=== PATIENT | female | born 1980 | race African-American/Black ===

== ENCOUNTER 2018-06-14 14:05 | Emergency (ER) | payer OTHER ==
[~2018-06-14] VITALS: Ht 167.6 cm; Wt 142.9 kg
[~2018-06-14 14:05] MED LIST: IBUPROFEN 800800 M1 PO; NOHOMEMEDICATIONS; NORCO 5-325 TA1 EACH PO; NORCO 7.5-3251 EACH PO
[2018-06-14 14:51] LABS: ABSOLUTE NEUTROPHILS 5.3 thou/uL (1.4-8.2); BASOPHILS 0.5 % (0.0-2.0); EOSINOPHILS 3.1 % (0.0-3.0); HEMATOCRIT 31.7 % (37.0-47.0); HEMOGLOBIN 10.7 gm/dL (12.0-15.0); MCH 29.6 pg (26.0-34.0); MCHC 33.8 g/dL (28.0-37.0); MCV 87.3 fL (80.0-100.0); MONOCYTES 6.5 % (1.0-8.0); PLATELET COUNT 270 thou/uL (150-400); POLYS 66.9 % (36.0-66.0); RBC 3.63 mil/uL (4.20-5.00); RDW 15.8 % (10.5-14.5)
[2018-06-14 14:59] LABS: ANION GAP 7 mmol/L (7-16); BUN 8 mg/dL (7-18); CALCIUM 8.9 mg/dL (8.5-10.1); CHLORIDE 105 mmol/L (98-107); CO2 26 mmol/L (21-32); CREATININE 0.8 mg/dL (0.6-1.0); GLUCOSE 94 mg/dL (74-106); POTASSIUM 4.1 mmol/L (3.5-5.1); SODIUM 138 mmol/L (136-145)
[2018-06-14 15:07] LABS: ALBUMIN 3.1 g/dL (3.4-5.0); SGOT 16 U/L (15-37); SGPT 11 U/L (30-65); TOTAL BILIRUBIN 0.3 mg/dL (<0.1-1.0); TOTAL PROTEIN 7.3 g/dL (6.4-8.2); TROPONIN-I <0.06 ng/mL (<0.06)
[2018-06-14 16:43] VITALS: BP 109/76
--- NOTE | 2018-06-14 22:09 | EKG ---
[place] [address] [employer] [place] [address] ELECTROCARDIOGRAM REPORT Name: CECE HECK Room #: DEP [facility]#: [id number] Admission: 06/14/18 Attend Phys: Discharge: 06/14/18 Date of : 76 Report #: [id number] THIS REPORT FOR: //name// [facility] ED Test Date: 2018-06-14 Test Time: 15:44:21 Pat Name: CECE HECK Department: Room: Gender: F Steel Inspector: [place] : 1980 Requested By: Benjamin Valdovinos Order Number: [id number] MD: Heath Brennan Measurements Intervals [place] Rate: 55 P: 27 UT: 167 QRS: 12 QRSD: 88 T: 9 QT: 473 QTc: 453 Interpretive Statements Sinus rhythm Low voltage, precordial leads Compared to ECG 01/18/2008 10:08:12 No significant changes noted Electronically Signed On 06-14-2018 22:09:39 CLIENT SUPPORT PROFESSIONAL by Heath Brennan [email or web address] <ELECTRONICALLY SIGNED> By: Heath Brennan MD 06/14/18 [id number] [id number] Heath Brennan MD /EPI
== END 2018-06-14 16:43 | disposition home or self-care (01) ==
LOC: ER 14:05
PROVIDERS: Emergency Medicine
DX: R00.2 Palpitations (principal); D64.9 Anemia, unspecified; F43.21 Adjustment disorder with depressed mood; R11.2 Nausea with vomiting, unspecified; E66.9 Obesity, unspecified; Z68.43 Body mass index [BMI] 50.0-59.9, adult